=== PATIENT | female | born 1995 | race Hispanic/Latino ===

== ENCOUNTER 2022-06-30 18:00 | Inpatient (IN) | payer OTHER ==
[2022-07-01 04:29] VITALS: BMI 31.6
[2022-07-01] MEDS ORDERED: NS w/ Oxytocin 30 units 500 ML ONE (06:26)
[2022-07-01] MEDS ORDERED: Bupivacaine 0.25% HCL 30 ML VIAL ONE (08:00)
[2022-07-01] MEDS ORDERED: Bupivacaine PF 0.5% 30 ML VIAL ONE (08:00)
[2022-07-01] MEDS ORDERED: Fentanyl 2 mcg/Bup 0.1% Cadd 100 ML ONE (08:28)
[2022-07-01] MEDS ORDERED: Lidocaine 1% (PF) 30 ML VIAL SC PRN (08:29)
[2022-07-01] MEDS ORDERED: NS w/ Oxytocin 30 units 500 ML IV SCH ×2 (08:29)
[2022-07-01] MEDS ORDERED: Butorphanol Tartrate 1 MG/ML VIAL SLOW IVP PRN (08:29)
[2022-07-01] MEDS ORDERED: Diphenoxylate HCl/Atropine Tablet PO PRN ×2 (08:29)
[2022-07-01] MEDS ORDERED: Ondansetron PF 4 MG/2 ML Vial IVP PRN ×3 (08:29→21:08)
[2022-07-01] MEDS ORDERED: Ibuprofen 800 MG TAB PO PRN (08:29)
[2022-07-01] MEDS ORDERED: Lactated Ringer's 1,000 ML IV SCH (08:29)
[2022-07-01] MEDS ORDERED: Acetaminophen 500 MG TAB PO PRN (08:29)
[2022-07-01] MEDS ORDERED: Methylergonovine 0.2 MG/ML VIAL IM PRN (08:29)
[2022-07-01] MEDS ORDERED: Zolpidem Tartrate 5 MG TAB PO PRN (08:29)
[2022-07-01] MEDS ORDERED: Misoprostol 100 MCG TAB VAG SCH (08:29)
[2022-07-01] MEDS ORDERED: HYDROcodone/Acetaminophen 5/325 mg Tablet PO PRN ×3 (08:29→15:59)
[2022-07-01] MEDS ORDERED: hydrALAZINE 20 MG/ML VIAL SLOW IVP PRN ×2 (08:29→15:59)
[2022-07-01] MEDS ORDERED: Carboprost 250 MCG/ML AMP IM PRN (08:29)
[2022-07-01] MEDS ORDERED: Promethazine HCl 25 MG/ML VIAL IM PRN ×3 (08:29→21:08)
[2022-07-01] MEDS ORDERED: Misoprostol 200 MCG TAB PR PRN (08:29)
[2022-07-01 08:46] LABS: Hemoglobin 13.2 g/dL (12.0-15.5); Mean Corpuscular HGB CONC 33.8 g/dL (32.0-36.0); Mean Corpuscular Hemoglobin 29.9 pg (27.0-33.0); Mean Corpuscular Volume 88.5 fl (81.6-98.3); Mean Platelet Volume 12.5 fl (7.4-10.4); Platelet Count 329 10x3/uL (150-450); RBC Distribution Width 13.9 % (11.5-14.5); Red Blood Cell (RBC) Count 4.42 10x6/uL (3.90-5.03); White Blood Cell (WBC) Count 10.3 10x3/uL (3.5-10.5)
[2022-07-01 09:11] LABS: HBSAg Index 0.18 S/CO (0-0.99); Hep B Surf Ag Non-Reactive S/CO (NonReactive)
[2022-07-01 09:13] LABS: Syphilis Antibody Nonreactive (Nonreactive); Syphilis Antibody Index 0.04 S/CO (<1.00 Non-Reactive)
[2022-07-01] MEDS ORDERED: Lactated Ringer's 500 ML IV PRN (09:57)
[2022-07-01] MEDS ORDERED: ePHEDrine Sulfate 50 MG/10 ML VIAL SLOW IVP PRN (09:57)
[2022-07-01] MEDS ORDERED: diphenhydrAMINE 50 MG/ML VIAL IVP PRN ×2 (09:57→21:08)
[2022-07-01] MEDS ORDERED: Moisturizing Cream (Eucerin) 113 GM JAR TOP PRN ×2 (09:57→21:08)
[2022-07-01] MEDS ORDERED: Naloxone HCl 0.4 mg/ml Vial IVP PRN ×4 (09:57→21:08)
[2022-07-01] MEDS ORDERED: Acetaminophen 325 MG TAB PO PRN ×2 (09:57→15:59)
[2022-07-01] MEDS ORDERED: Communication Order-Pharmacy FS SCH ×2 (10:00→21:15)
[2022-07-01] MEDS ORDERED: Fentanyl 2 mcg/Bupivacaine 0.1% Cassette 100 ML EPIDURAL SCH (10:00)
[2022-07-01] MEDS ORDERED: Lanolin Ointment 7 GM TUBE TOP PRN (15:59)
[2022-07-01] MEDS ORDERED: Boostrix 0.5 ML (Tdap) VIAL (>/=7 yrs of age) IM ONE (15:59)
[2022-07-01] MEDS ORDERED: Bisacodyl 10 MG SUPP PR PRN (15:59)
[2022-07-01] MEDS ORDERED: diphenhydrAMINE 25 MG CAP PO PRN (15:59)
[2022-07-01] MEDS ORDERED: Famotidine/PF 20 mg/2ml Vial SLOW IVP PRN (16:01)
[2022-07-01] MEDS ORDERED: Bicitra 30 ML UDCUP PO PRN (16:01)
[2022-07-01] MEDS ORDERED: CEFAZOLIN 2 GM in Sodium Chloride 0.9% 100 ML IVPB SCH (16:15)
[2022-07-01] MEDS ORDERED: Azithromycin 500 MG in Sodium Chloride 0.9% 250 ML 250 ML IVPB SCH (16:15)
[2022-07-01] MEDS ORDERED: CEFAZOLIN 1 GM VIAL ONE (16:42)
[2022-07-01] MEDS ORDERED: Naloxone HCl 0.4 mg/ml Vial IV PRN (21:08)
[2022-07-01] MEDS ORDERED: Promethazine HCl 25 MG SUPP PR PRN (21:08)
[2022-07-01] MEDS: Ketorolac Tromethamine 30 MG/ML VIAL IVP PRN (21:52)
[2022-07-01] MEDS: Docusate 100 MG CAP PO SCH (21:52)
[2022-07-01 22:00] LABS: SARS-CoV-2 NAA Rapid Test Not Detected (NotDetected)
[2022-07-02] MEDS: Simethicone Chewable 80 MG TAB PO PRN ×2 (05:15→09:50)
[2022-07-02] MEDS: Ketorolac Tromethamine 30 MG/ML VIAL IVP PRN (05:15)
[2022-07-02 05:19] LABS: Hemoglobin 11.6 g/dL (12.0-15.5); Mean Corpuscular HGB CONC 33.5 g/dL (32.0-36.0); Mean Corpuscular Hemoglobin 29.7 pg (27.0-33.0); Mean Corpuscular Volume 88.7 fl (81.6-98.3); Mean Platelet Volume 11.9 fl (7.4-10.4); Platelet Count 280 10x3/uL (150-450); White Blood Cell (WBC) Count 13.6 10x3/uL (3.5-10.5)
[2022-07-02] MEDS: Docusate 100 MG CAP PO SCH ×2 (09:49→21:09)
[2022-07-02] MEDS: Prenatal Vitamin 1 TAB PO SCH (09:50)
[2022-07-02] MEDS: HYDROcodone/Acetaminophen 5/325 mg Tablet PO PRN ×3 (09:50→21:09)
[2022-07-03] MEDS: HYDROcodone/Acetaminophen 5/325 mg Tablet PO PRN ×2 (04:03→09:30)
[2022-07-03] MEDS: Simethicone Chewable 80 MG TAB PO PRN (09:30)
[2022-07-03] MEDS: Docusate 100 MG CAP PO SCH (09:30)
[2022-07-03] MEDS: Prenatal Vitamin 1 TAB PO SCH (09:30)
[2022-07-03 11:32] VITALS: BP 123/58; TEMP 98.1
== END 2022-07-03 13:05 | disposition home or self-care (01) | DRG 788 ==
LOC: CSHLD 07-01 03:30 → CSHPP 07-01 20:20
PROVIDERS: ADMIT Obstetrics & Gynecology; ATTEND Obstetrics & Gynecology
PROC: 10D00Z1 Extraction of Products of Conception, Low, Open Approach (ICD-10-PCS; principal; 2022-07-01)
PROC: 10H07YZ Insertion of Other Device into Products of Conception, Via Natural or Artificial Opening (ICD-10-PCS; 2022-07-01)
DX: O24.420 Gestational diabetes mellitus in childbirth, diet controlled (principal); Z3A.39 39 weeks gestation of pregnancy; Z37.0 Single live birth; Z20.822 Contact with and (suspected) exposure to COVID-19; O62.1 Secondary uterine inertia; O76 Abnormality in fetal heart rate and rhythm complicating labor and delivery; O32.4XX0 Maternal care for high head at term, not applicable or unspecified; O32.8XX0 Maternal care for other malpresentation of fetus, not applicable or unspecified
CPT/HCPCS: 36415; 51702; 85027; 86780; 86850; 86900; 86901; 87340; J0690; J1885; S0020; U0002